=== PATIENT | male | born 1990 | race Caucasian/White ===

== ENCOUNTER 2020-03-01 12:42 | Emergency (ER) | payer MEDICAID, SELFPAY ==
[2020-03-01 12:43] VITALS: BP 141/96; PULSE 112; RESP 25; TEMP 37.3; O2SAT 95; BMI 26.8
--- NOTE | 2020-03-01 13:04 | ED.DCSUM_ITS ---
History of Present Illness Chief Complaint: Seizure Informant: Patient Narrative: 29-year-old male presenting for epileptic seizure. Patient underwent cardiac surgery at [facility] about a month and a half ago while recovering sustained a stroke which resulted in seizures. He ran out of his Keppra about 1 week ago. He had a seizure today witnessed by his significant other. He was transported by EMS. He states he is otherwise doing okay. He feels back to his baseline. Past Medical History - Allergies and Home Meds Allergies/Adverse Reactions: Allergies No Known Allergies Allergy (Verified 04/18/13 21:51) Past Medical History: - - Stroke seizure Surgical History: - - Aortic stenosis Lives: Spouse/ Significant Other Smoking Status: Never smoker Drugs: None Review of Systems General: Denies: Chills, Fever, Sweats Eyes: Denies: Visual changes - bilaterally, Diplopia ENT: Denies: Rhinorrhea, Sore throat Cardiovascular: Denies: Chest pain, Palpitations Respiratory: Denies: Dyspnea, Cough, Dyspnea on exertion Gastrointestinal: Denies: Abdominal pain, Nausea, Vomiting, Diarrhea, Melena, Hematochezia Genitourinary: Denies: Dysuria, Hematuria, Frequency Musculoskeletal: Denies: Back pain, Extremity Pain Skin: Denies: Rash, Wounds Neurological: Reports: - - Seizure. Denies: Headache, Weakness, Numbness Physical Exam Vital Signs/Narrative: Vital Signs Temp Pulse Resp BP Pulse Ox 03/01/20 12:43 99.2 F H 112 H 25 H 141/96 H 95 Inital Vital Signs reviewed: Yes General: Well nourished, Well developed, No Acute Distress Head: Normocephalic, Atraumatic Eyes: Perrl, EOMI ENT: Moist mucous membranes, No rhinorrhea Neck: Supple, Nontender Cardiovascular: Regular rate, Regular rhythm, No murmurs Respiratory: No distress, CTA bilaterally, Chest nontender Abdomen: Soft, Nontender, Nondistended, Normal bowel sounds Back: Nontender, Normal Inspection Extremities: Nontender, No edema Skin: Normal color, No rash Neurological: Alert, Oriented x3 Psychological: Tearful Diagnostic/Tx/Re-eval - Medical Decision Making Patient will be given IV Keppra. I am more than happy to write him a prescription for Keppra. I am going to encourage him to follow-up with primary care as he does not have a neurologist locally. I asked social work to see him as he is very tearful and seems a bit lost when it comes to his follow-up. ED Disposition - Plan for ED Patient: Disposition: Home or Assisted Living Diagnosis: Epileptic seizure Instructions: ED Seizure, Recurrent (Adult) Prescriptions: Levetiracetam [Keppra] 1,500 mg PO BID #120 tab Prescription Printed Additional Instructions: Please follow-up with your doctors.
[2020-03-01] MEDS: levETIRAcetam IV 1,000 MG/100 ML BAG 400 MG IV (13:47)
--- NOTE | 2020-03-01 14:21 | CM.ED ---
SOCIAL WORK Informant: Dr. Anguiano Reason for Consult: Resources Met with patient in room. Introduced role and reason for referral. Patient states was at the [facility] about 1 month ago for cardiac surgery when he suffered from a stroke. Patient states as a result from the stroke he had seizures and was prescribed Keppra. Patient reports about 1 week ago ran out of medication and had a seizure today. Patient states was unsure of who to follow up with for medication. Patient states PCP is Dr. Child. This worker assisted patient in scheduling follow up appointment. Appointment is scheduled for 03/16/20 at 3:20p. Dr. Anguiano wrote for one month of Keppra. Discussed possible counseling for mental health. Patient states may benefit from counseling, but at this time feels he is too busy with outpatient therapy. Patient open to receiving list of agencies. List given. Plan: Home with follow up appointment scheduled with PCP for 03/16/20 at 3:20p. Mey Domingo MSW, ETL CONSULTANT
[2020-03-01 14:26] VITALS: BP 126/94; PULSE 77; RESP 14; O2SAT 99
== END 2020-03-01 14:27 | disposition home or self-care (01) ==
PROVIDERS: Emergency Provider Emergency Medicine; PCP Family Medicine
DX: G40.909 Epilepsy, unspecified, not intractable, without status epilepticus (principal); Z86.73 Personal history of transient ischemic attack (TIA), and cerebral infarction without residual deficits
CPT/HCPCS: 96365; 99285

== ENCOUNTER 2020-05-24 22:22 | Emergency (ER) | payer MEDICAID, SELFPAY ==
[2020-05-24 22:23] VITALS: BP 157/98; PULSE 83; RESP 16; TEMP 36.1; O2SAT 97; BMI 27.1
--- NOTE | 2020-05-24 22:30 | ED.VIS.GEN ---
History of Present Illness Chief Complaint: Upper Extremity Injury Informant: Patient Onset: Days Context: Gradual Onset Timing: Continuous Current Severity: Mild Maximum Severity: Mild Narrative: Patient is a 29-year-old male with history of prior stroke and seizure disorder presents to the emergency department with left clavicle swelling. He states that about 3 days ago, he fell. He landed on his left elbow. He really had no pain, but over the past few days he is noted some swelling along his collarbone. He can still move his arm. He feels like he is at his baseline. He denies any weakness, numbness, or other injury. He is not on anticoagulants. Prior similar symptoms: No Recent Illness/Hospitalization: No Past Medical History - Allergies and Home Meds Allergies/Adverse Reactions: Allergies No Known Allergies Allergy (Verified 05/24/20 22:24) Primary Care Physician: Mitchell Child MD [Primary Care Provider] - Prior records reviewed: Yes Past Medical History: - - Prior stroke, seizure disorder Surgical History: - - Aortic stenosis Smoking Status: Never smoker Review of Systems General: Denies: Chills, Fever, Sweats Eyes: Denies: Visual changes - bilaterally, Diplopia ENT: Denies: Rhinorrhea, Sore throat Cardiovascular: Denies: Chest pain, Palpitations Respiratory: Denies: Dyspnea, Cough, Dyspnea on exertion Gastrointestinal: Denies: Abdominal pain, Nausea, Vomiting, Diarrhea, Melena, Hematochezia Genitourinary: Denies: Dysuria, Hematuria, Frequency Musculoskeletal: Denies: Back pain, Extremity Pain Skin: Denies: Rash, Wounds Neurological: Denies: Headache, Weakness, Numbness Physical Exam Vital Signs/Narrative: Vital Signs Temp Pulse Resp BP Pulse Ox 05/24/20 22:23 96.9 F L 83 16 157/98 H 97 Inital Vital Signs reviewed: Yes General: Well nourished, Well developed, No Acute Distress Head: Normocephalic, Atraumatic Eyes: Perrl, EOMI ENT: Moist mucous membranes, No rhinorrhea Neck: Supple, Nontender Cardiovascular: Regular rate, Regular rhythm, No murmurs Respiratory: No distress, CTA bilaterally, Chest tenderness - Tender over the left clavicle. No obvious deformity. No pain in the shoulder or elbow. Normal pulses. Abdomen: Soft, Nontender, Nondistended, Normal bowel sounds Back: Nontender, Normal Inspection Extremities: Nontender, No edema Skin: Normal color, No rash Neurological: Alert, Oriented x3, Cranial nerves II-XII grossly intact, Normal Strength, Normal Sensation Psychological: Normal affect, Normal Mood Diagnostic/Tx/Re-eval Clinical Impression(s) from Imaging Studies Clavicle X-Ray 05/24/20 22:53 IMPRESSION: Normal x-ray examination of the clavicle. Electronically Signed: Lincoln Diego DO at 23:02 EDT Tel , Service support , - Medical Decision Making Patient presents with swelling over his clavicle. There is no obvious deformity. His pulses are normal. He does have diminished range of motion secondary to stroke. Patient is resting comfortably. I did obtain plain films. Was reviewed by both myself and the radiologist. The symptoms do seem more consistent with muscular strain given the swelling. I am to place in a sling for 2 days for comfort. At this point, the patient be discharged home. Impression 1. Shoulder strain ED Disposition - Plan for ED Patient: Instructions: ED Shoulder Sprain Referrals: Mitchell Child MD [Primary Care Provider] -
--- NOTE | 2020-05-24 22:53 | RAD_ITS ---
STUDY: X-RAY - LEFT CLAVICLE REASON FOR EXAM: Male, 29 years old. injury TECHNIQUE: 2 view(s) of the clavicle. COMPARISON: None. FINDINGS: Normal clavicle. Normal acromioclavicular articulation. Normal visualized sternoclavicular articulation. Normal visualized pulmonary apex. RAD/Clavicle IMPRESSION: Normal x-ray examination of the clavicle. Electronically Signed: Lincoln Diego DO at 23:02 EDT Tel , Service support ,
== END 2020-05-24 23:26 | disposition home or self-care (01) ==
LOC: ED 23:20
PROVIDERS: Emergency Provider Emergency Medicine; PCP Family Medicine
DX: S46.912A Strain of unspecified muscle, fascia and tendon at shoulder and upper arm level, left arm, initial encounter (principal); W19.XXXA Unspecified fall, initial encounter; Y93.9 Activity, unspecified; Y92.89 Other specified places as the place of occurrence of the external cause; Y99.9 Unspecified external cause status; G40.909 Epilepsy, unspecified, not intractable, without status epilepticus; Z86.73 Personal history of transient ischemic attack (TIA), and cerebral infarction without residual deficits
CPT/HCPCS: 73000; 99283

== ENCOUNTER 2020-09-01 11:30 | Outpatient (RCR) | payer MEDICAID, SELFPAY ==
--- NOTE | 2020-02-10 14:06 | HP.PTEVAL ---
Patient's Visit Information MANNY REY is a 29 year old M referred to Physical Therapy by Dr. Tej Block MD with a diagnosis of CVA, L hemiplegia. Date of Evaluation: 02/10/20 Physical Therapist: Rene Hernandez, PT, ATC - Visit Plan Frequency: 2-3x /Week Duration: 4-6 Weeks Plan: L LE strengthening, balance and prorio ex's, core stab ex's, gait training, nustep, and HEP - Subjective DOS: 12/15/2019. 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 Pt reports while he was in surgery, he had a CVA and a couple seizures. Pt reports he is starting to revocer a little better. Now. Pt reports he is now able to open and close his L hand. Pt reports since his surgery, he feels like his L LE is still weak and he has a balance deficit. Pt denies tingling or numbness at this time. No sleep difficulty secondary to pain. Pt reports he is in no pain at this time. Pt reports he is limited with stair negotiation and ambulation now secondatry to L LE weakness and balance. 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 Pt reports he feels 40% improvement overall. - Objective Neuro: B LE sensation is WNL to light touch. R patellar reflex 2/3, L= 3/3. ROM: B LE's are WNL when comparing bilaterally. MMT: R LE is grossly 5/5 throughout and L LE is grossly 4/5 throughout. Transfers: I with [id number], stand to sit, stand to lye, and upine to stand transfers. Gait: Pt is able to ambulate greater than 600 feet. Pt lacks heel strike and toe off on L LE. Pt requires CGA this date - Goals Goal 1:: Increase L LE strength x 1 grade to aid with stair negotiation Goal Time Frame: 4-6 Weeks Goal 2:: Pt will be able to ambulate 1000' with SBA and LRD to aid with community ambulation Goal Time Frame: 4-6 Weeks Goal 3:: I with HEP Goal Time Frame: 4-6 Weeks - Rehabilitation Potential Physical Therapy Diagnosis: Pt has L LE weakness, difficulty with gait, and decreased balance secondary to CVA Rehabilitation Potential: Good - Anticipated Interventions Patient/Client Instruction: Educate patient on: Condition, Plan of Care For the Purpose of:: To improve self management Therapeutic Exercise to Include: Strength training, Endurance training, Balance training, Flexibilty training, Gait and locomotor training, Dynamic Lumbar Stabilization For the Purpose of:: To improve muscle performance and motor function, To improve ability to perform ADL's, To improve gait and locomotor functions Thank you for the opportunity to evaluate your patient. For Medicare and Medicare HMO plans, please review the plan of care and approve it. It will need to be FAXED BACK to us at [phone] for Medicare purposes. For Medicare only, by signing this I certify the plan of care. Please let me know if there are questions or concerns regarding this plan of care. Physician Signature: Date:
--- NOTE | 2020-02-10 15:45 | HP.SP.AD ---
History - History Date of Eval: 02/10/20 Medical Diagnosis (from RX): CVA,ANOXIC ENCEPHALOPATHY,SEIZURE Date of Onset of Diagnosis: 12-15-19 Previous speech therapy: Yes Results: Speech therapy inpatient and rehab 12-15-19 to 01-28-20. Significant progress. [facility] discharge summary reported mild to moderate cognitive deficits for executive functions and mild deficits in short term memory. Other Relevant Medical History/Diagnoses/Surgery: Pt reports he was born with an aortic valve deficiency. While in heart surgery on 12/15/19, he had a CVA and seizures. He spent 3 weeks ta [facility] inpatient rehab after acute stay. Patient had a tracheostomy after respiratory insufficiency on 12/22/19. 01/02/20, MBS revealed aspiration with NPO with feeding tube. Trach is removed and patient is on oral diet. Medications related to this diagnosis: Norvasc, baby aspirin, Pepcid, Keppra, Zestril, Melatonin, Lopressor, Miralax, Seroquel. Smoking Status: Never smoker Hx Smoking: No - Pain Is pain an issue with your current prescribed condition?: Yes - Personal Education History: GED Occupation: [employer]. Right Hearing Abillity: Normal Left Hearing Abillity: Normal Patients Living Arrangements: With Significant Other Patient Allergies - Allergies Allergies No Known Allergies Allergy (Verified 04/18/13 21:51) Subjective Dysphagia - Current Diet Solids Current Diet: Regular - Current Diet Liquids Current Liquids: Thin CLQT - CLQT CLQT Administered: Yes CLQT: Cognitive Linguistic Quick Test (CLQT) is a criterion - referenced assessment designed for adults between the ages of 18 and 89 with known or suspected neurological dysfuntions. The CLQT is to assess strength and weaknesses in five cognitive domains. Severity ratings are within normal limits, mild, moderate, severe deficits. The subtests are as follows: Date: 02/10/20 - Attention Attention: Mild - Memory Memory: Moderate - Executive Functions Executive Functions: WNL - Language Language: Mild - Visuospatial Skills Visuospatial Skills: WNL - Composite Severity Rating Composite Severity Rating: Mild - CLQT Comments Comments The patient present with left neglect during tasks. He exhibited reduced language skills through labeling and during conversation. He appeared to have mildly delayed answers at times and intermittent anomia. His score would have been higher on language and memory but he did not follow the direction to give his complete address ( only gave number and street). He exhibited lack of detail in recall. Further assessment is needed for higher level cognitive tasks. Plan - Recommendations Treatment Warranted: Yes - Frequency Frequency: 1x/Week Duration: 2 Months Visits in this POC: 8 - Prognosis Prognosis: Good - Goals that are Established: Determination:: Goals will be added/modified as deemed necessary and appropriate. Therapy will be discontinued when results of re-evaluation indicate therapy is no longer needed or lack of progress has been documented. - Goal #1-5 Goal #1: Radhames will use recall strategies on 4/5 trials during structured and unstructured tasks on 4/5 trials. Goal #2: Radhames will complete Language tasks including but not limited to naming, answering questions, and describing to increase language response with no anomia on 4/5 trials on 2/3 consecutive sessions. Goal #3: Further high level cognitive assessment. Education - Patient has Indicated that the Following Identified Educational Needs: None The Patient has indicated that they have no educational or learning abilities that may effect their care.: Yes - Patient Instruction Patient Education: Diagnosis, Treatment Plan, Goals Person Taught: Patient Teaching Method: Discussion Response to teaching: Verbalize understanding, Has Prior Knowledge
--- NOTE | 2020-02-13 12:33 | HP.OTEVAL_ITS ---
Patient's Visit Information MANNY REY is a 29 year old M, referred to Occupational Therapy by Dr. Tej Block MD, with a diagnosis of CVA, left UE weakness. Date of Evaluation: 02/12/20 Occupational Therapist: Cookie Gore, ARUN/Marisol, CHT - Subjective This 29 year old male was seen for OT eval with dx of CVA. pt lives with. pt states he underwent heart sx and suffered a CVA limiting use of left UE. pt states about a week ago he began having more left shoulder motion and the ability to open and close his hand. pt is right handed - ADLs Bathing: Handle washcloth & soap, Squeeze shampoo bottle Grooming: Trim nails, Squeeze toothpaste on Kitchen: Open jars, Open bottle caps, Ziplock bags, Pour from pitcher Comments: pt lives with feancee in a ranch home with one entry step with basement. pt states the bedroom is in the basement but he has been staying on the main floor- bathroom is on main floor as well- pt is using shower chair. pt was employeed at [employer] - pt was working on [employer]. has three children ages 1,5,7. curently pt is home with family. - ROM Shoulder: right WNL left 90 Elbow: right WNL left 0/140 Forearm: right WNL left WFL Wrist: right WNL left WFL ROM Comments: pt demo good left biceps/forearm wrist and digit ROM - slow motion but gets functional ROM - Strength Elbow: right 5/5 left 3+/5 Forearm: right 5/5 left 3+/5 Wrist: right 5/5 left 3+/5 [employer] Placing: right 80# left 5# Lateral Pinch: right 24# left 5# Tripod Pinch: right 10# left unable Tip-to-Tip Pinch: right 10# left unable - Sensation Stereognosis: Normal - Right, Abnormal - Left Kinesthesia: Normal - Right, Abnormal - Left Proprioception: Normal - Right, Abnormal - Left Sensation Comments: pt states tingling/numbness left wrist to finger tips - Movement Muscle Tone: pt demo with min tone to left UE - Stroke Specific Quality of Life Total SS-QOL Score: 133 - Goals Goal:: PT will demo an increase in visitor services associate strength by 40# to increase independent with basic occupations of daily living to return pt to PLOF by D/C. Pt will demo an increase in lateral and tripod pinch by 6# to increase pts independent with opening baggies, containers at PLOF by D/C. pt will demo MMT of left UE to 4/5 by d/c to increase pts ind. with ADLs and IADLS Goal:: pt will demo shoulder flex to 160* or greater to increase pts ind. with ADLs and IADL by d/c. pt will demo the ability to form a composite fist to hold coins, small and large objects by d/c Goal:: pt will demo the ability to manipulate fasteners ind. by d/c - Rehabilitation General Assessment: pt demo with limited left UE ROM and weakness increasing need of assistance with ADLs and IADLs. Pt would benefit from skilled OT services 2-3 x week for 8 weeks to increase pts functional use of left UE with ADls and IADLs. Today therapist ed. pt on PROM, AAROM, wt. bearing to left UE and grasp release tasks. pt demo understanding and agree to POC. Rehabilitation Potential: Good - Anticipated Interventions A/AAROM/PROM, Strengthening, Fine Motor Coord/Henry, Neuro Reeducation, Visual/Perceptual Skills, ADL Training, Education re assistive Equipment - Visit Plan Frequency: 2-3x /Week Duration: 3 Months TEXT: Thank you for the opportunity to evaluate your patient. For Medicare and Medicare HMO plans, please review the plan of care and approve it. It will need to be FAXED BACK to us at [phone] for Medicare purposes. Please let me know if there are questions or concerns regarding this plan of care. Physician Signature: Date:
--- NOTE | 2020-04-21 11:11 | HP.PTREVAL ---
Dr. Tej Block MD, It has been my pleasure to treat MANNY REY over the last 13 visits for CVA, L hemiplegia. Please see the progress note below for an update on the physical therapy plan of care! Subjective: Has been unscheduled for last two weeks. No big changes lately. Feels like walk better without cane. walking around [facility] without AD. Was using [facility] but wants to use st cane. No pain. Sleeping OK. Sees doctor Child soon. Had televisit with neuro yesterday and flor muhammad on meds. wants to cotninue PT for leg strength, walking. Has steps to [place] with railing and cane one step at at [place]. Worked at [employer] but unable to do that right now. Basic aDLs are getting better, showers himself, not cooking steaks yet. Bathroom self adn shower self. Hobbies are kids age 1 yo and 5 yo and 7 yo. Objective/Function: Walks with diminished motor control L ankle but safe and I without cane on firm surface today. steps reciprocally up slowly but no rail needed. Rail needed to descend safely. Walks slightly better with st cane 1200 feet today without a problem or LOB. L DF active to -2 degrees but PROM to 3 degrees. Inv and ev L are 3- strength when placed in position but hard time with motor control to get to inv/ev, can maintain once placed. Sit transfer without UE I. Bed trasnfer I. Weakness in hip ext adn abd 4- and flexion 4- L. knee flexiona dn extension 4+ L, PF 3+ L. R sided is 5/5. AROM WFL LE. Seeing OT and speech also. Overall progressing nicely, slowly. Plan Plan: Pt needs new script to continue and will get that form Dr. Child. 2x/week for 4-6 week appropriate to continue with fair prognosis toward goals. Please emphasize core and LE strength ex program pt can do at home aggressively. Then progress to L ankle motor control and gait training uneven surfaces/hills, steps descending adn upper elvel gait. Goals Goal 1:: Increase L LE strength x 1 grade to aid with stair negotiation Goal Time Frame: 4-6 Weeks Goal Progress: met except inv L, approp Goal 2:: Pt will be able to ambulate 1000' with SBA and LRD to aid with community ambulation Goal Time Frame: 4-6 Weeks Goal Progress: without AD. Goal 3:: I with HEP Goal Time Frame: 4-6 Weeks Goal Progress: band LE, need more. Goal 4:: Walk out doors on uneven surfaces 500 feet I safely without AD. Goal Time Frame: 4-6 Weeks Goal Progress: NEW GOAL Goal 5:: Steps reciprocal up and down with AD. safely Goal Time Frame: 4-6 Weeks Goal Progress: NEW GOAL Goal 6:: I approp full body exercises for fitness at home Goal Time Frame: 4-6 Weeks Goal Progress: NEW GOAL Anticipated Interventions Patient/Client Instruction: Educate patient on: Condition, Plan of Care For the Purpose of:: To improve self management Therapeutic Exercise to Include: Strength training, Endurance training, Balance training, Flexibilty training, Gait and locomotor training, Dynamic Lumbar Stabilization For the Purpose of:: To improve muscle performance and motor function, To improve ability to perform ADL's, To improve gait and locomotor functions Please do not hesitate to contact me at [phone] by phone or if you have questions or concerns regarding this new plan of care! Sincerely, Socrates Guerra, DPT, OCS, CSCS
--- NOTE | 2020-04-30 11:46 | HP.SP.ADRE ---
Previous/Current Goals - Goals 1-5 Previous Goal #1: Radhames will use recall strategies on 4/5 trials during structured and unstructured tasks on 4/5 trials. Goal 1 Status: Radhames was provided a written list of strategies. Initially, he needed to setting alarms on his phone to recall his exercises for daily completion. Radhames was able to recall Radhames was able recall details of short presentations ( under 5 minutes) with good accuracy. He recalled all main details. Previous Goal #2: Radhames will complete Language tasks including but not limited to naming, answering questions, and describing to increase language response with no anomia on 4/5 trials on 2/3 consecutive sessions. Goal 2 Status: Radhames has progressed significantly for reduing anomia. Initially he had multiple eipsodes of anomia, often with hesitations. He had two times were he was unable to think of word. During his most recent session, no anomia was noted at all. Previous Goal #3: Further high level cognitive assessment. Goal 3 Status: FAVRES: See testing. History - History Date of Eval: 02/10/20 Medical Diagnosis (from RX): CVA,ANOXIC ENCEPHALOPATHY,SEIZURE Date of Onset of Diagnosis: 12-15-19 Previous speech therapy: Yes Results: Speech therapy inpatient and rehab 12-15-19 to 01-28-20. Significant progress. [facility] discharge summary reported mild to moderate cognitive deficits for executive functions and mild deficits in short term memory. Other Relevant Medical History/Diagnoses/Surgery: Pt reports he was born with an aortic valve deficiency. While in heart surgery on 12/15/19, he had a CVA and seizures. He spent 3 weeks ta [facility] inpatient rehab after acute stay. Patient had a tracheostomy after respiratory insufficiency on 12/22/19. 01/02/20, MBS revealed aspiration with NPO with feeding tube. Trach is removed and patient is on oral diet. Medications related to this diagnosis: Norvasc, baby aspirin, Pepcid, Keppra, Zestril, Melatonin, Lopressor, Miralax, Seroquel. Smoking Status: Never smoker Hx Smoking: No - Pain Is pain an issue with your current prescribed condition?: No - Personal Education History: GED Occupation: [email or web address]. Right Hearing Abillity: Normal Left Hearing Abillity: Normal Patients Living Arrangements: With Significant Other Patient Allergies - Allergies Allergies No Known Allergies Allergy (Verified 04/18/13 21:51) Subjective Dysphagia - Current Diet Solids Current Diet: Regular - Current Diet Liquids Current Liquids: Thin Other Impressions - Comments FAVRES -: Functional Assessment of Verbal Reasoning and Executive Strategies was completed. Radhames had within normal scores on task 1 ( Planning an event) and Task 3 ( Making a decision). Task 2 ( Scheduling): An accuracy standard score of 1 and a rationale standard score of 68. This subtest is complex scheduling for up to 12 tasks in one day. Radhames stated that he would never have a schedule like this for his work. Task 4 ( Building a case) had a accuracy standard score of 44 and a rationale standard sore of 53. This task was a written task that Radhames was able to vberbally explain more than in written form. He did well on the reasoning skills of getting the facts, predicting consequences and generating ideas. Areas of need are elimitating irrelevant information, weighing the facts and flexibility. Plan - Plan Plan: Speech therapy is recommended to continue short term for high level cognitive deficits. - Recommendations Treatment Warranted: Yes - Frequency Frequency: 1x/Week Duration: 4-6 Weeks - Prognosis Prognosis: Good - Goals that are Established: Determination:: Goals will be added/modified as deemed necessary and appropriate. Therapy will be discontinued when results of re-evaluation indicate therapy is no longer needed or lack of progress has been documented. - Goal #1-5 Goal #1: Radhames will complete reasoning tasks with 80% accuracy on 2/3 consecutive sessions.
--- NOTE | 2020-07-29 07:58 | OTREVAL_ITS ---
Dr. Tej Block MD, It has been my pleasure to treat MANNY REY over the last 5 visits for CVA, left UE weakness. Please see the progress note below for an update on the occupational therapy plan of care! Subjective: pt arrives to session. pt states the stata-dyne for wrist and hand- pt states he his having more difficulty with tone Objective/Function: pt demo with a wrist extensor posture and MCP in flexion- pt using unaffected hand to straighten fingers. pt demo with shoulder flex at 110*. elbow flex to 135* extension to -10*. pt able to work a tenodisis approach with grasp of med. size objects. Plan Frequency: 2-3x /Week Duration: 3 Months Visits in this POC: 24 Plan: pt would benefit from cont. skilled OT services 2-3x week for 6 weeks. work on decrease tone. increase in bilateral skills to increase pts ind. with ADLs and the ability to care for his children Goals - Goals Patient Goals: Regain Mobility, Use Hand/Wrist/Arm Normally Again, Be More Independent in ADLS Goal:: PT will demo an increase in student development specialist strength by 40# to increase independent with basic occupations of daily living to return pt to PLOF by D/C. Pt will demo an increase in lateral and tripod pinch by 6# to increase pts independent with opening baggies, containers at PLOF by D/C. pt will demo MMT of left UE to 4/5 by d/c to increase pts ind. with ADLs and IADLS Goal:: pt will demo shoulder flex to 160* or greater to increase pts ind. with ADLs and IADL by d/c. pt will demo the ability to form a composite fist to hold coins, small and large objects by d/c Goal:: pt will demo the ability to manipulate fasteners ind. by d/c Anticipated Interventions Anticipated Interventions: A/AAROM/PROM, Strengthening, Fine Motor Coord/Henry, Neuro Reeducation, Visual/Perceptual Skills, ADL Training, Education re assistive Equipment Please do not hesitate to contact me at [phone] by phone or if you have questions or concerns regarding this new plan of care! Sincerely, Cookie Gore, OTR/L, CHT
--- NOTE | 2020-09-01 11:59 | HP.OTDCSUM ---
It has been my pleasure to treat MANNY REY under orders from Dr. Tej Block MD, for the diagnosis of CVA, left UE weakness for a total of 9 visit(s). Please see the following information for a summary of their discharge status. % Improvement: 65 Objective/Function: pt demo with increase tone in left hand and forearm- pt lumbricals are pulling mcps into flex. pt ambulates with mcps in flex and wrist in extension. pt continues to struggle with fluid arm movement with functional reach and grasp of med. objects. pt will continue to work with his HEP and if any changes occur pt to return to Dr. Patient Goals: Regain Mobility, Use Hand/Wrist/Arm Normally Again, Be More Independent in ADLS Goal:: PT will demo an increase in senior programmer strength by 40# to increase independent with basic occupations of daily living to return pt to PLOF by D/C. Pt will demo an increase in lateral and tripod pinch by 6# to increase pts independent with opening baggies, containers at PLOF by D/C. pt will demo MMT of left UE to 4/5 by d/c to increase pts ind. with ADLs and IADLS Goal:: pt will demo shoulder flex to 160* or greater to increase pts ind. with ADLs and IADL by d/c. pt will demo the ability to form a composite fist to hold coins, small and large objects by d/c Goal:: pt will demo the ability to manipulate fasteners ind. by d/c Plan: D/C with HEP Discharge Comments: pt has been seen in OT 21 visits and 15 No show apts since Feb. pt seen with dx of CVA and left UE weakness/tone and lack of fluid muscle movement. Due to pts inconsistent attendance and limited gains last 4 weeks pt is d/c with HEP. If there are questions or concerns regarding this patient's occupational therapy, please fell free to call me at [phone]. Thank you for the referral of this patient. Sincerely, Cookie Gore, OTR/L, CHT
--- NOTE | 2020-09-15 13:11 | HP.SP.DC ---
ST Discharge Summary - Discharged: Discharge: Radhames Holliday is discharged from [facility] as of June 07, 2020 as patient has obtains skills that are back to baseline for him. He reported no deficits at home and demonstrated appropriate skills at time of discharge. He was evaluated on 02/10/20 following a CVA during heart surgery. His course of therapy was complicated by seizures. Initially, Radhames was having anomia but that resolved. Also addressed was recall skills as well as cognitive deficits. Radhames reported no deficits for speech therapy at the time of discharge and was in agreement with discharge. Thank you for allowing me to participate in the care of this patient.
== END 2020-09-01 19:00 | disposition home or self-care (01) ==
LOC: OT 11:30
PROVIDERS: PCP Pediatrics; Referring Provider Physical Medicine & Rehabilitation; Visit Provider Physical Medicine & Rehabilitation
DX: G93.1 Anoxic brain damage, not elsewhere classified (principal); I35.9 Nonrheumatic aortic valve disorder, unspecified; R56.9 Unspecified convulsions; Z95.4 Presence of other heart-valve replacement; Z86.73 Personal history of transient ischemic attack (TIA), and cerebral infarction without residual deficits
CPT/HCPCS: 92507; 92523; 97110; 97112; 97116; 97140; 97161; 97164; 97166; 97530

== ENCOUNTER 2024-08-27 17:43 | Emergency (ER) | payer MEDICARE, MEDICAID, SELFPAY ==
[2024-08-27 17:43] VITALS: BP 143/106; PULSE 103; RESP 18; TEMP 37; O2SAT 98; BMI 25.1
--- NOTE | 2024-08-27 18:14 | EKG12_ITS ---
Test Reason : CP Blood Pressure : */* mmHG Vent. Rate : 92 BPM Atrial Rate : 92 BPM P-R Int : 134 ms QRS Dur : 92 ms QT Int : 356 ms P-R-T Axes : 27 35 24 degrees QTcB Int : 440 ms Normal sinus rhythm Normal ECG Confirmed by WICHO CACERES, VALDO ([id number]), technical editor MILKA HALLMAN ([id number]) on 08/29/2024 1:11:36 PM Referred By: Taurus Bailon Confirmed By: VALDO SANDS MD
--- NOTE | 2024-08-27 18:15 | EDS_ITS ---
HPI History of Present Illness Chief Complaint: Chest Pain Narrative Narrative: 34-year-old male past medical history of remote surgery 4 to 5 years ago for aortic stenosis with natural valve replacement, not on blood thinners presents with intermittent episodes of his chest "locking up" on him. He states has been happening all day. The last episode lasted 20 minutes. Of note, he and his state that while he was under anesthesia for surgery, he had multiple strokes and seizures as a result he has taking Keppra twice a day. He states that it is worse when he tries to take a deep breath. He reportedly had a fever today as high as 102 °F, and a nonproductive cough, but he has not taken any antipyretics today. They were concerned mainly because of his chest locking up on him multiple times today. [facility] Medical History Aortic stenosis Home Medications Medication Instructions Recorded Last Taken Type levetiracetam 750 mg tablet 1,500 mg (2 x 750 mg) PO B ID ##[id number] 03/01/20 Unknown Rx azithromycin 250 mg tablet 250 mg PO DAILY #4 TABLETS 08/27/24 Unknown Rx Allergy/AdvReac Type Severity Reaction Status Date / Time No Known Allergies Allergy Verified 08/27/24 17:45 Social History Smoking Status: Never smoker ROS ROS ED ROS Narrative Review of systems positive for left-sided chest pain, sometimes pleuritic in nature, lasting up to 20 minutes at a time. Reported fever and cough, nonproductive. No nausea or vomiting. EXAM Physical Exam Narrative Exam Narrative: Afebrile. Vital signs noted. Nontoxic-appearing. Cardiovascular examination reveals regular rate and rhythm. Lungs clear to auscultation bilaterally. Abdomen is soft nontender with positive bowel sounds. Neurological examination nonfocal, nonlateralizing. No pedal edema appreciated bilaterally. Const Vital Signs: 08/27/24 17:43 08/27/24 18:14 08/27/24 18:43 Temperature 98.6 F 98.6 F Temperature Source Oral Oral Pulse Rate 103 H 96 Respiratory Rate 18 24 H Respiratory Effort Blood Pressure 143/106 H 130/101 H Blood Pressure Mean 118 110 Pulse Ox 98 85 Oxygen Delivery Method Room Air Room Air Room Air 08/27/24 18:44 08/27/24 19:00 08/27/24 20:00 Temperature Temperature Source Pulse Rate 78 77 Respiratory Rate 16 20 H Respiratory Effort Normal Blood Pressure 136/102 H 128/98 H Blood Pressure Mean 113 108 Pulse Ox 93 94 Oxygen Delivery Method Room Air 08/27/24 21:00 Temperature Temperature Source Pulse Rate 75 Respiratory Rate 18 Respiratory Effort Blood Pressure 128/95 H Blood Pressure Mean 106 Pulse Ox 95 Oxygen Delivery Method Room Air MDM MDM MDM Narrative Medical decision making narrative: The differential diagnosis includes but not limited to ACS versus pulmonary embolism versus pneumonia versus pneumothorax. History and physical does not support pneumonia or pneumothorax. He is currently afebrile here without taking an antipyretic. EKG was obtained and interpreted by myself independently as normal sinus rhythm at 92 bpm without ectopy or acute ST changes. No STEMI. No significant change from EKG from 2013. I reviewed his laboratory work and he has normal white count of 6.3 with hemoglobin 16.4, hematocrit 46.4, platelet count 169. BMP is grossly unremarkable except for creatinine slightly elevated at 1.29 with glucose 124 and normal anion gap of 13. Normal sodium and normal potassium. Initial high-sensitivity troponin is less than 6 with repeat at 2- hour also less than 6. Hence I doubt ACS as a cause of his chest pain. His D- dimer is elevated at 2.68. I had reviewed his chest x-ray independently and see no evidence of pneumonia or pneumothorax. I reviewed the radiology report which confirms my independent interpretation. As he had an elevated D-dimer, I ordered a CTA of the chest. On review of the radiology report, there is no evidence of pulmonary embolism/pulmonary emboli. They did comment on groundglass appearance of the right upper lobe. This is not where the patient was having his pleuritic chest pain. Differential does include mucoid plugging versus pneumonia. Although he does not have white count or fever here, they reported fever before as well as a cough. He was given his first dose of azithromycin 500 mg here and prescription written for for 250 mg tablets to take over the next 4 days. Upon repeat examination, he is resting comfortably and states he feels improved. While I feel it is probably more muscular pain that he had, I do feel he can be discharged to follow-up with his primary care provider. Return instructions to the emergency department were reviewed. Disposition is discharged home in stable condition. History & Record Review Discussion w/independent historian: Patient and Family () Additional record(s) reviewed:: Prior ED visit (Last seen in 2020) Lab Data Attestation: I reviewed the patient's lab results. Labs: Laboratory Results - last 24 hr 08/27/24 08/27/24 18:28 20:28 WBC 6.3 RBC 5.68 Hgb 16.4 Hct 46.4 MCV 81.7 MCH 28.9 MCHC 35.3 RDW Std Deviation 35.8 RDW Coeff of Irene 12.0 Plt Count 169 MPV 10.3 Immature Gran % (Auto) 0.300 Neut % (Auto) 59.1 Lymph % (Auto) 22.4 [place] % (Auto) 17.1 H Eos % (Auto) 0.6 Baso % (Auto) 0.5 Absolute Neuts (auto) 3.7 Absolute Lymphs (auto) 1.41 Nucleated RBC % 0 D-Dimer Quant (PE/DVT) 2.68 H* Sodium 136 Potassium 3.7 Chloride 98 Carbon Dioxide 24.2 Anion Gap 13 BUN 11 Creatinine 1.29 H Estim Creat Clear Calc 82.21 Est GFR (MDRD) Non-Af 76 BUN/Creatinine Ratio 8.4 L Glucose 124 H Calcium 9.3 Troponin T High Sens < 6 Troponin T Hi Sens 2 Hr < 6 Radiography Diagnostic Testing: Clinical Impression(s) from Imaging Studies Chest X-Ray 08/27/24 18:45 IMPRESSION: No acute cardiopulmonary process. Reading Location: [facility] Chest CTA 08/27/24 19:34 IMPRESSION: No acute pulmonary emboli. Right upper lobe spiculated ground-glass density may reflect mucoid impaction, atypical pneumonia, hemorrhage, infarction, or early stages of neoplastic process under appropriate clinical context. No large focal consolidations. Reading Location: [facility] Discharge Plan Triage Chief Complaint: Chest Pain ED Provider: Taurus Bailon Dx/Rx/DC Orders Clinical Impression: Pleuritic chest pain, Elevated d-dimer Instructions: ED Chest Pain, Uncertain Cause Prescriptions: New azithromycin 250 mg tablet 250 mg PO DAILY Qty: 4 0RF No Action levetiracetam 750 MG tablet 1,500 mg PO BID Qty: 120 0RF Primary Care Provider: Agatha De Leon NP Referrals: Mitchell Child MD [Non-Staff] - 3-5 Days if not improving Activity Restrictions/Additional Instructions: Return with increased chest pain, new or worsening symptoms. Take antibiotic as directed. Follow-up with your primary care provider in the next 3 to 5 days if not improving. Print Language: Upper Sorbian Disposition Disposition: Home, Self Care
[2024-08-27 18:43] VITALS: BP 130/101; PULSE 96; RESP 24; TEMP 37; O2SAT 85
[2024-08-27 18:45] LABS: Hematocrit 46.4 % (40-54); Hemoglobin 16.4 g/dL (13.0-16.5); Immature Granulocytes Count 0.020 X10^3/uL (0.0-0.0); Mean Corp Hgb Conc 35.3 g/dL (32-36); Mean Corpuscular Volume 81.7 fL (80-94); Mean Platelet Vol. 10.3 fl (6.2-12.0); NRBC Flagged by Analyzer 0 % (0-5); Platelet Count 169 K/mm3 (150-450); RBC Distribution Width CV 12.0 % (11.6-14.6); RBC Distribution Width SD 35.8 fl (35.1-43.9); Red Blood Count 5.68 M/mm3 (4.6-6.2); White Blood Count 6.3 K/mm3 (4.4-11.0)
--- NOTE | 2024-08-27 18:45 | RAD_ITS ---
EXAM: XR Chest, 1 View CLINICAL INDICATION: CHEST PAIN TECHNIQUE: Frontal view of the chest. COMPARISON: No relevant prior studies available. FINDINGS: LUNGS AND PLEURAL SPACES: Unremarkable. No consolidation. No pneumothorax. HEART: Unremarkable. No cardiomegaly. MEDIASTINUM: Unremarkable. Normal mediastinal contour. BONES/JOINTS: Unremarkable. No acute fracture. RAD/Chest 1 View (Portable) IMPRESSION: No acute cardiopulmonary process. Reading Location: [id number]
[2024-08-27 19:00] VITALS: BP 136/102; PULSE 78; RESP 16; O2SAT 93
[2024-08-27 19:03] LABS: Anion Gap 13 (5-15); BUN 11 mg/dL (4-19); BUN/Creat Ratio 8.4 RATIO (10-20); Calcium,Total 9.3 mg/dL (7.6-11.0); Carbon Dioxide 24.2 mmol/L (21.0-32.0); Chloride 98 mmol/L (98-108); Estimated Creatinine Clearance 82.21 ml/min (50-250); Glucose 124 mg/dL (70-99); Potassium 3.7 mmol/L (3.3-5.1); Troponin T High Sensitivity < 6 ng/L (<=22)
[2024-08-27 19:20] LABS: D-Dimer Quantitative (DVT/PE) 2.68 FEU/ug/m (0.27-0.49)
--- NOTE | 2024-08-27 19:34 | CT_ITS ---
PROCEDURE: CTA CHEST W/WO CONTRAST 08/27/2024 REASON FOR EXAM: ELEVATED D-DIMER TECHNIQUE: CTA CHEST W/WO CONTRAST Multiplanar Sagittal and Coronal images were obtained. CONTRAST: 100 mL of Isovue 370 One or more dose reduction techniques were used (e.g., Automated exposure control, adjustment of the mA and/or kV according to patient size, use of iterative reconstruction technique). RADIATION DOSE SUMMARY: DLP: 473 mGycm COMPARISON: None FINDINGS: PULMONARY ARTERIES: No evidence of pulmonary embolism. LUNGS AND PLEURA: Right upper lobe spiculated ground-glass density may reflect mucoid impaction, atypical pneumonia, hemorrhage, infarction, or early stages of neoplastic process under appropriate clinical context. No large focal consolidations. No definite pulmonary edema. No pneumothorax. MEDIASTINUM: No lymphadenopathy or mass. The heart shows no acute findings. The aorta shows no acute findings. The pulmonary trunk, and branches of the vessels in the mediastinum are within normal limits. SUPRACLAVICULAR AND AXILLARY: No abnormalities seen in these regions. No mass or significant lymphadenopathy. UPPER ABDOMEN: The visualized upper abdomen is unremarkable. BONES AND SOFT TISSUES: The ribs are unremarkable. The visualized spine shows no significant acute findings. No focal bony mass lesions noted. The subcutaneous soft tissues are unremarkable. CT/CTA Chest W/WO Contrast IMPRESSION: No acute pulmonary emboli. Right upper lobe spiculated ground-glass density may reflect mucoid impaction, atypical pneumonia, hemorrhage, infarction, or early stages of neoplastic process under appropriate clinical context. No larg e focal consolidations. Reading Location: [id number]
[2024-08-27 20:00] VITALS: BP 128/98; PULSE 77; RESP 20; O2SAT 94
[2024-08-27 21:00] VITALS: BP 128/95; PULSE 75; RESP 18; O2SAT 95
[2024-08-27 21:26] LABS: Troponin T High Sens 2 HR < 6 ng/L (<=22)
[2024-08-27 21:53] VITALS: BP 122/93; PULSE 77; RESP 18; TEMP 37; O2SAT 95
== END 2024-08-27 21:59 | disposition home or self-care (01) ==
PROVIDERS: Emergency Provider Emergency Medicine; PCP Registered Nurse; Referring Provider Emergency Medicine; Visit Provider Emergency Medicine
DX: R07.81 Pleurodynia (principal); R79.89 Other specified abnormal findings of blood chemistry; Z95.2 Presence of prosthetic heart valve
CPT/HCPCS: 71045; 71275; 80048; 84484; 85025; 85379; 93005; 99285; Q9967; A4216